=== PATIENT | male | born 1970 | race Caucasian/White ===

== ENCOUNTER → 2021-08-02 | Outpatient (CLI) | payer OTHER ==
[2021-08-02 16:32] LABS: BASOPHILS ABSOLUTE AUTO 0.03 K/mm3 (0.00-0.23); BASOPHILS PERCENT AUTO 0 % (0-2); EOSINOPHILS ABSOLUTE AUTO 0.08 K/mm3 (0.00-0.68); EOSINOPHILS PERCENT AUTO 1 % (0-6); Hemoglobin 16.2 g/dL (13.5-17.5); IMMATURE GRAN ABSOLUTE AUTO 0.03 K/mm3 (0.00-0.10); IMMATURE GRAN PERCENT AUTO 0 % (0-1); LYMPHOCYTES ABSOLUTE AUTO 0.78 K/mm3 (0.84-5.20); LYMPHOCYTES PERCENT AUTO 11 % (21-46); MONOCYTES ABSOLUTE AUTO 0.59 K/mm3 (0.16-1.47); MONOCYTES PERCENT AUTO 8 % (4-13); Mean Corpuscular HGB 32.7 pg (26.0-34.0); Mean Corpuscular HGB Conc 33.1 g/dL (31.5-36.5); Mean Corpuscular Volume 99 fL (80-100); Mean Platelet Volume 10.1 fL (9.1-12.4); NEUTROPHILS ABSOLUTE AUTO 5.51 K/mm3 (1.96-9.15); NEUTROPHILS PERCENT AUTO 79 % (41-73); Platelet Count 251 K/mm3 (150-400); RDW Coefficient Variation 13.6 % (11.7-14.2); RDW Standard Deviation 49.8 fL (35.1-46.3); Red Blood Cell Count 4.95 M/mm3 (4.30-5.90); White Blood Cell Count 7.02 K/mm3 (4.00-11.30)
[2021-08-02 16:42] LABS: Albumin, Blood 3.7 g/dL (3.4-5.0); Albumin/Globulin Ratio 0.9 (0.8-1.8); Bilirubin, Total 0.8 mg/dL (0.1-1.0); Bun/Creatinine Ratio 12.7 (12.0-20.0); Calcium, Blood 9.2 mg/dL (8.5-10.1); Creatinine, Blood 1.34 mg/dL (0.60-1.20); Globulin, Blood 4.1 g/dL (2.2-4.0); Potassium, Blood 4.7 mmol/L (3.5-5.5); Total Protein, Blood 7.8 g/dL (6.4-8.2)
== END | disposition home or self-care (01) ==
LOC: LAB SHORT 16:24
PROVIDERS: Physician Assistant
DX: R10.9 Unspecified abdominal pain (principal)
CPT/HCPCS: 80053; 83690; 85025

== ENCOUNTER → 2022-07-27 | Outpatient (CLI) | payer OTHER ==
[2022-07-27 13:20] LABS: BASOPHILS ABSOLUTE AUTO 0.03 K/mm3 (0.00-0.23); BASOPHILS PERCENT AUTO 1 % (0-2); EOSINOPHILS ABSOLUTE AUTO 0.07 K/mm3 (0.00-0.68); EOSINOPHILS PERCENT AUTO 1 % (0-6); Hematocrit 49.1 % (37.0-53.0); Hemoglobin 16.5 g/dL (13.5-17.5); IMMATURE GRAN ABSOLUTE AUTO 0.04 K/mm3 (0.00-0.10); IMMATURE GRAN PERCENT AUTO 1 % (0-1); LYMPHOCYTES ABSOLUTE AUTO 0.81 K/mm3 (0.84-5.20); LYMPHOCYTES PERCENT AUTO 13 % (21-46); MONOCYTES ABSOLUTE AUTO 0.45 K/mm3 (0.16-1.47); MONOCYTES PERCENT AUTO 7 % (4-13); Mean Corpuscular HGB 33.5 pg (26.0-34.0); Mean Corpuscular HGB Conc 33.6 g/dL (31.5-36.5); Mean Corpuscular Volume 100 fL (80-100); Mean Platelet Volume 9.6 fL (9.1-12.4); NEUTROPHILS ABSOLUTE AUTO 4.65 K/mm3 (1.96-9.15); NEUTROPHILS PERCENT AUTO 77 % (41-73); Platelet Count 210 K/mm3 (150-400); RDW Coefficient Variation 14.3 % (11.7-14.2); RDW Standard Deviation 52.3 fL (35.1-46.3); Red Blood Cell Count 4.93 M/mm3 (4.30-5.90); White Blood Cell Count 6.05 K/mm3 (4.00-11.30)
[2022-07-27 13:31] LABS: Alanine Aminotransfer (ALT/SGP 61 U/L (12-78); Albumin, Blood 3.7 g/dL (3.4-5.0); Albumin/Globulin Ratio 0.9 (0.8-1.8); Alk Phos 69 U/L (40-126); Anion Gap 6 mmol/L (6-16); Aspartate Aminotrans (AST/SGOT 28 U/L (12-37); Bilirubin, Total 0.7 mg/dL (0.1-1.0); Blood Urea Nitrogen 11 mg/dL (8-24); Bun/Creatinine Ratio 10.6 (12.0-20.0); CHOL/HDL RATIO 3.4; CO2, Blood 29 mmol/L (21-32); Calcium, Blood 8.1 mg/dL (8.5-10.1); Chloride, Blood 103 mmol/L (98-108); Cholesterol 203 mg/dL (50-200); Creatinine, Blood 1.04 mg/dL (0.60-1.20); Globulin, Blood 3.9 g/dL (2.2-4.0); Glomerular Filtration Rate 86 (60-); Glucose, Blood 102 mg/dL (70-99); HDL Cholesterol 59 mg/dL (>39); LDL/HDL RATIO 1.8; Low Density Lipoprotein Chol 107 mg/dL (<110); Potassium, Blood 4.3 mmol/L (3.5-5.5); Sodium, Blood 138 mmol/L (136-145); Total Protein, Blood 7.6 g/dL (6.4-8.2); Triglycerides 184 mg/dL (30-160); Very Low Density Lipoprot Chol 36 mg/dL (6-32)
[2022-07-27 14:00] LABS: International Normalized Ratio 1.37; Prothrombin Time Results 14.1 Sec (9.7-11.5)
== END | disposition home or self-care (01) ==
LOC: LAB 13:15 → LAB SHORT 13:15
PROVIDERS: General Practice
DX: Z79.01 Long term (current) use of anticoagulants (principal); Z51.81 Encounter for therapeutic drug level monitoring; I48.91 Unspecified atrial fibrillation
CPT/HCPCS: 80053; 80061; 85025; 85610

== ENCOUNTER 2023-04-26 19:10 | Inpatient (IN) | payer OTHER ==
[~2023-04-26] VITALS: Ht 172.7 cm; Wt 90.7 kg
[2023-04-26] MEDS ORDERED: Prinivil10 MG PO (19:29)
[2023-04-26] MEDS ORDERED: Lovastatin20 MG PO (19:30)
[2023-04-26] MEDS ORDERED: AMIODARONE HCL200 M1 PO (19:30)
[2023-04-26] MEDS ORDERED: WARF4 PO (19:31)
[2023-04-26 19:32] LABS: BASOPHILS ABSOLUTE AUTO 0.04 K/mm3 (0.00-0.23); BASOPHILS PERCENT AUTO 0 % (0-2); EOSINOPHILS ABSOLUTE AUTO 0.23 K/mm3 (0.00-0.68); EOSINOPHILS PERCENT AUTO 3 % (0-6); Hematocrit 41.7 % (37.0-53.0); Hemoglobin 13.8 g/dL (13.5-17.5); IMMATURE GRAN ABSOLUTE AUTO 0.03 K/mm3 (0.00-0.10); IMMATURE GRAN PERCENT AUTO 0 % (0-1); LYMPHOCYTES ABSOLUTE AUTO 0.84 K/mm3 (0.84-5.20); LYMPHOCYTES PERCENT AUTO 9 % (21-46); MONOCYTES PERCENT AUTO 7 % (4-13); Mean Corpuscular HGB 32.8 pg (26.0-34.0); Mean Corpuscular HGB Conc 33.1 g/dL (31.5-36.5); Mean Corpuscular Volume 99 fL (80-100); Mean Platelet Volume 9.8 fL (9.1-12.4); NEUTROPHILS ABSOLUTE AUTO 7.32 K/mm3 (1.96-9.15); NEUTROPHILS PERCENT AUTO 81 % (41-73); Platelet Count 294 K/mm3 (150-400); RDW Coefficient Variation 13.4 % (11.7-14.2); RDW Standard Deviation 49.1 fL (35.1-46.3); Red Blood Cell Count 4.21 M/mm3 (4.30-5.90); White Blood Cell Count 9.06 K/mm3 (4.00-11.30)
[2023-04-26 19:47] LABS: Albumin, Blood 2.9 g/dL (3.4-5.0); Albumin/Globulin Ratio 0.7 (0.8-1.8); Bilirubin, Total 0.7 mg/dL (0.1-1.0); Bun/Creatinine Ratio 13.8 (12.0-20.0); Calcium, Blood 8.7 mg/dL (8.5-10.1); Creatinine, Blood 0.87 mg/dL (0.60-1.20); Globulin, Blood 4.3 g/dL (2.2-4.0); Potassium, Blood 4.1 mmol/L (3.5-5.5); Total Protein, Blood 7.2 g/dL (6.4-8.2)
[2023-04-27 01:37] VITALS: BP 112/82
--- NOTE | 2023-04-27 05:07 | NUR ---
ADMIT ADMIT AT APPROX 0230. PT ARRIVAL TO UNIT VIA W/C. ABLE TO TRANSFER SELF TO BED WITH STANDBY ASSIST. PT WAS HOLDING THE END OF THE CHEST TUBE TUBING THAT ER UNHOOKED FROM SUCTION. HOME BASED ASSISTANT ASSISTED WITH SETTING UP PLEUROVAC TO WALL SUCTION PER ORDERS. RED DRAINAGE NOTED IN CANISTER. SATS STABLE ON RA AND PT DENIES SOB. REPORTS TOLERABLE PAIN. NPO. ORIENTED TO ROOM AND CALL LIGHT. SURGICAL CONSULT PLACED. VSS.
[2023-04-27 06:57] LABS: BASOPHILS ABSOLUTE AUTO 0.05 K/mm3 (0.00-0.23); BASOPHILS PERCENT AUTO 1 % (0-2); EOSINOPHILS ABSOLUTE AUTO 0.25 K/mm3 (0.00-0.68); EOSINOPHILS PERCENT AUTO 3 % (0-6); Hematocrit 37.8 % (37.0-53.0); Hemoglobin 12.6 g/dL (13.5-17.5); IMMATURE GRAN ABSOLUTE AUTO 0.05 K/mm3 (0.00-0.10); IMMATURE GRAN PERCENT AUTO 1 % (0-1); LYMPHOCYTES ABSOLUTE AUTO 0.91 K/mm3 (0.84-5.20); LYMPHOCYTES PERCENT AUTO 11 % (21-46); MONOCYTES ABSOLUTE AUTO 0.63 K/mm3 (0.16-1.47); MONOCYTES PERCENT AUTO 7 % (4-13); Mean Corpuscular HGB 33.4 pg (26.0-34.0); Mean Corpuscular HGB Conc 33.3 g/dL (31.5-36.5); Mean Corpuscular Volume 100 fL (80-100); Mean Platelet Volume 9.9 fL (9.1-12.4); NEUTROPHILS ABSOLUTE AUTO 6.67 K/mm3 (1.96-9.15); NEUTROPHILS PERCENT AUTO 78 % (41-73); Platelet Count 258 K/mm3 (150-400); RDW Coefficient Variation 13.5 % (11.7-14.2); RDW Standard Deviation 50.7 fL (35.1-46.3); Red Blood Cell Count 3.77 M/mm3 (4.30-5.90); White Blood Cell Count 8.56 K/mm3 (4.00-11.30)
[2023-04-27 07:06] VITALS: BP 97/76
[2023-04-27 07:10] LABS: Albumin, Blood 2.6 g/dL (3.4-5.0); Albumin/Globulin Ratio 0.6 (0.8-1.8); Bilirubin, Total 0.6 mg/dL (0.1-1.0); Bun/Creatinine Ratio 17.1 (12.0-20.0); Calcium, Blood 8.6 mg/dL (8.5-10.1); Creatinine, Blood 1.05 mg/dL (0.60-1.20); Potassium, Blood 4.7 mmol/L (3.5-5.5); Total Protein, Blood 6.6 g/dL (6.4-8.2)
[2023-04-27 07:20] LABS: Prothrombin Time Results 58.4 Sec (9.7-11.5)
[2023-04-27 07:25] LABS: International Normalized Ratio 6.17
--- NOTE | 2023-04-27 07:34 | NUR ---
LAB CALLED WITH CRITICAL INR OF 6.17. DR. CUADRA NOTIFIED ORDERS RECIEVED FOR 5 MG PO VITAMIN K NOW.
--- NOTE | 2023-04-27 11:27 | NUR ---
SUCTION INCREASED TO -[address] FARR. PT RESTING IN BED COMFORTABLY, DENIES SOB. PAIN TOLERABLE AT THIS TIME.
[2023-04-27 14:06] LABS: Hematocrit 39.7 % (37.0-53.0); Hemoglobin 13.4 g/dL (13.5-17.5)
[2023-04-27 16:01] LABS: Prothrombin Time Results 45.6 Sec (9.7-11.5)
[2023-04-27 16:03] LABS: International Normalized Ratio 4.74
[2023-04-27 16:09] VITALS: BP 108/74
--- NOTE | 2023-04-27 16:09 | NUR ---
SHIFT SUMMARY R SIDED PNEUMOTHORAX. CHEST TUBE CONNECTED TO SUCTION AT -30. APPROX 120 ML SANGUINOUS DRAINAGE IN THE CANISTER. PT DENIES SHORTNESS OF BREATH AND REPORTS FEELING BETTER SINCE TUBE PLACED. TOLERATING DIET WELL. PAIN CONTROLLED PER EMAR. PT DENIES NEED DURING SHIFT.
[2023-04-27 19:39] VITALS: BP 119/80
[2023-04-28 04:03] VITALS: BP 119/75
[2023-04-28 04:12] LABS: Hematocrit 35.9 % (37.0-53.0); Mean Corpuscular HGB 33.1 pg (26.0-34.0); Mean Corpuscular HGB Conc 33.4 g/dL (31.5-36.5); Mean Corpuscular Volume 99 fL (80-100); Mean Platelet Volume 9.8 fL (9.1-12.4); Platelet Count 251 K/mm3 (150-400); RDW Coefficient Variation 13.2 % (11.7-14.2); RDW Standard Deviation 48.3 fL (35.1-46.3); Red Blood Cell Count 3.63 M/mm3 (4.30-5.90)
[2023-04-28 04:28] LABS: International Normalized Ratio 2.39; Prothrombin Time Results 23.9 Sec (9.7-11.5)
--- NOTE | 2023-04-28 06:07 | NUR ---
SHIFT SUMMARY R SIDE PNEUMOTHORAX, CHEST TUBE IN PLACE W/ MINIMAL OUTPUT OF 10ML THIS SHIFT. SUCTION REMAINS AT -30ML PRESSURE. PT/INR CONTINUE TO DECREASE W/ INR W/IN NORMAL RANGE. PT TOLERATING PO INTAKE. PLANS FOR F/U CHEST XRAY THIS A.M. TO DETERMINE PLAN OF CARE OR DISCHARGE. NO ACUTE CHANGES THIS SHIFT. PT PLEASANT AND COOPERATIVE. CALL LIGHT W/IN REACH.
[2023-04-28 07:12] VITALS: BP 122/83
[2023-04-28 15:52] VITALS: BP 119/73
--- NOTE | 2023-04-28 16:48 | NUR ---
SHIFT SUMMARY CHEST TUBE HAS REMAINED CLAMPED T/O SHIFT, PT AMBULATING FREQUENTLY IN THE HALLS AND INDEPENDENTLY IN ROOM. DENIES SHORTNESS OF BREATH. MINIMAL PAIN IN RIBS. USING INCENTIVE SPIROMETRY. NO OUTPUT SEEN IN TUBE TODAY. TOLERATING DIET WELL, VOIDING USING URINAL.
[2023-04-28 19:31] VITALS: BP 113/71
[2023-04-29 04:04] VITALS: BP 105/67
[2023-04-29 04:13] LABS: Hematocrit 35.4 % (37.0-53.0); Hemoglobin 11.7 g/dL (13.5-17.5)
[2023-04-29 04:28] LABS: International Normalized Ratio 1.42; Prothrombin Time Results 14.6 Sec (9.7-11.5)
--- NOTE | 2023-04-29 05:54 | NUR ---
SHIFT SUMMARY PNEUMOTHORAX TO R CHEST R/T FALL AND FX RIBS. CHEST TUBE TO WATER SEAL CLAMPED THIS SHIFT AWAITING A.M. REPEAT XRAY THEN POSSIBLE DISCHARGE TO HOME. PT DENIES SOB, LUNGS CLEAR W/ DIMINISHED RLL. PT INDEPENDANT IN ROOM AND AMBULATED IN [place]. MEDICATED 1X FOR PAIN AT HS. NO ACUTE CHANGES THIS SHIFT.
[2023-04-29 07:18] VITALS: BP 98/71
[2023-04-29 08:57] VITALS: BP 110/75
[2023-04-29 14:25] VITALS: BP 100/66
[2023-04-29] MEDS ORDERED: MIRALAX17 GM PO (15:27)
[2023-04-29] MEDS ORDERED: Percocet 5-3251 EACH PO (15:27)
[2023-04-29] MEDS ORDERED: WARF4 PO (15:28)
--- NOTE | 2023-04-29 16:02 | NUR ---
DISCHARGE SUMMARY PT A&OX4, VSS/RA, AFSHIN PO, VOIDING, AMB IND/DRESSED SELF, PAIN MANAGED, I.S. EDU/ENC, IV DC'D. DC INS PROVIDED. PT REP UNDERSTANDING THOSE INSTRUCTIONS INCLUDING FU WITH SURGEON, FU WITH PCP RE COUMADIN LABS/RESTART COUMADIN 8-21, REMOVE DRESSING 48 HOURS, OK TO SHOWER. LEFT FLOOR, WALKED OUT WITH RN, WITH ALL PERSONAL POSSESSIONS INCLUDING DC PACKET AND 1 NARC SCRIPT.
== END 2023-04-29 16:05 | disposition home or self-care (01) | DRG 183 ==
LOC: ER 19:10 → SURS 19:11
PROVIDERS: Emergency Medicine; Internal Medicine; ADMIT Internal Medicine
PROC: 0W9900Z Drainage of Right Pleural Cavity with Drainage Device, Open Approach (ICD-10-PCS; principal; 2023-04-26)
DX: S22.41XA Multiple fractures of ribs, right side, initial encounter for closed fracture (principal); S27.2XXA Traumatic hemopneumothorax, initial encounter; I48.20 Chronic atrial fibrillation, unspecified; I10 Essential (primary) hypertension; E78.5 Hyperlipidemia, unspecified; R79.1 Abnormal coagulation profile; W01.10XA Fall on same level from slipping, tripping and stumbling with subsequent striking against unspecified object, initial encounter; Z86.718 Personal history of other venous thrombosis and embolism; Z79.01 Long term (current) use of anticoagulants; Z79.899 Other long term (current) drug therapy; Y92.009 Unspecified place in unspecified non-institutional (private) residence as the place of occurrence of the external cause
CPT/HCPCS: 32551; 36415; 71045; 71101; 74177; 80053; 85014; 85018; 85025; 85027; 85610; 85730; 93005; 93010; 96374-59; 96375; 99285-25; A9270; J1885; J2270; J2405; J3010; Q9967

== ENCOUNTER 2024-07-07 09:16 | Emergency (ER) | payer OTHER ==
[~2024-07-07] VITALS: Ht 180.3 cm; Wt 95.2 kg
[~2024-07-07 09:16] MED LIST: AMIODARONE HCL200 M1 PO; Lovastatin20 MG PO; MIRALAX17 GM PO; Percocet 5-3251 EACH PO; Prinivil10 MG PO; WARF4 PO
[2024-07-07 10:02] VITALS: BP 128/95
[2024-07-07] MEDS ORDERED: Amiodarone HCl200 MG PO (10:24)
[2024-07-07] MEDS ORDERED: WARF5 PO (10:24)
[2024-07-07] MEDS ORDERED: Prinivil10 MG PO (10:24)
== END 2024-07-07 10:20 | disposition home or self-care (01) ==
LOC: ER 09:16
DX: Z76.0 Encounter for issue of repeat prescription (principal); I10 Essential (primary) hypertension; I48.91 Unspecified atrial fibrillation; Z79.01 Long term (current) use of anticoagulants; Z79.899 Other long term (current) drug therapy
CPT/HCPCS: 99281

== ENCOUNTER 2024-08-11 09:13 | Emergency (ER) | payer OTHER ==
[~2024-08-11] VITALS: Ht 185.4 cm; Wt 108.9 kg
[~2024-08-11 09:13] MED LIST changes: +Amiodarone HCl200 MG PO; +WARF5 PO
[2024-08-11 09:26] VITALS: BP 152/100
[2024-08-11] MEDS ORDERED: WARF5 PO ×2 (09:31→09:45)
[2024-08-11] MEDS ORDERED: Amiodarone HCl200 MG PO (09:31)
[2024-08-11] MEDS ORDERED: Prinivil10 MG PO (09:31)
== END 2024-08-11 09:46 | disposition home or self-care (01) ==
LOC: ER 09:13
DX: Z76.0 Encounter for issue of repeat prescription (principal); I10 Essential (primary) hypertension; I48.91 Unspecified atrial fibrillation; Z79.01 Long term (current) use of anticoagulants; Z79.899 Other long term (current) drug therapy
CPT/HCPCS: 99281

== ENCOUNTER 2024-09-14 11:28 | Emergency (ER) | payer OTHER ==
[~2024-09-14] VITALS: Ht 180.3 cm; Wt 97.1 kg
[2024-09-14 11:54] VITALS: BP 160/109
[2024-09-14] MEDS ORDERED: WARF5 PO (11:58)
[2024-09-14] MEDS ORDERED: Prinivil10 MG PO (11:58)
[2024-09-14] MEDS ORDERED: Amiodarone HCl200 MG PO (11:58)
[2024-09-14] MEDS ORDERED: Amiodarone HCl 200 MG Tab PO ONE (12:00)
[2024-09-14] MEDS ORDERED: Lisinopril 10 MG Tab PO ONE (12:00)
== END 2024-09-14 12:22 | disposition home or self-care (01) ==
LOC: ER 11:28
DX: Z76.0 Encounter for issue of repeat prescription (principal); E78.5 Hyperlipidemia, unspecified; I10 Essential (primary) hypertension; Z86.79 Personal history of other diseases of the circulatory system; Z79.01 Long term (current) use of anticoagulants; Z79.899 Other long term (current) drug therapy
CPT/HCPCS: 99281; A9270